=== PATIENT | male | born 1960 | race Caucasian/White ===

== ENCOUNTER 2019-06-23 05:56 | Inpatient (IN) | payer OTHER ==
[2019-06-16 08:44] VITALS: BMI 33.3
[~2019-06-23 05:56] MED LIST: TRANEXAMIC ACID 1000 MG/10 ML VIAL IVPUSH ONE
[2019-06-23] MEDS ORDERED: oxyCODONE HCL 10 MG SUSTAINED ACTING TABLET ONE (06:32)
[2019-06-23] MEDS ORDERED: PANTOPRAZOLE 40 MG TABLET (FP) ONE (06:32)
[2019-06-23] MEDS ORDERED: CELECOXIB 200 MG CAPSULE ONE (06:33)
[2019-06-23] MEDS: oxyCODONE HCL 10 MG SUSTAINED ACTING TABLET PO ONE (07:00)
[2019-06-23] MEDS: PANTOPRAZOLE 40 MG TABLET (FP) PO ONE (07:00)
[2019-06-23] MEDS: CELECOXIB 200 MG CAPSULE PO ONE (07:00)
[2019-06-23] MEDS ORDERED: MIDAZOLAM HCL 2 MG/2 ML SINGLE DOSE VIAL ONE ×2 (07:14→08:09)
[2019-06-23] MEDS ORDERED: BUPIVACAINE LIPOSOME/PF (EXPAREL) 266 MG/20 ML VIAL ONE (07:15)
[2019-06-23] MEDS ORDERED: SODIUM CHLORIDE 0.9% P/F 10 ML VIAL IJ ONE (07:15)
[2019-06-23] MEDS ORDERED: TRANEXAMIC ACID 1000 MG/10 ML VIAL ONE ×3 (07:19→07:46)
[2019-06-23] MEDS ORDERED: ceFAZolin SODIUM 1 GM VIAL ONE ×6 (07:19→15:28)
[2019-06-23] MEDS ORDERED: VANCOMYCIN 1,000 MG VIAL (RESTRICTED TO ID ONLY) ONE ×3 (07:19→07:46)
[2019-06-23] MEDS ORDERED: SUCCINYLCHOLINE CHLORIDE 200 MG/10 ML SYRINGE ONE (07:45)
[2019-06-23] MEDS ORDERED: BUPIVACAINE HCL/PF 0.5% (5MG/ML) 10 ML VIAL ONE (07:51)
[2019-06-23] MEDS ORDERED: BUPIVACAINE HCL/PF 2.5 MG/ML - 30 ML VIAL IJ ONE (07:51)
[2019-06-23] MEDS ORDERED: VANCOMYCIN 1,500 MG in DEXTROSE 5%-WATER - 500 ML IVPB ONE (08:00)
[2019-06-23] MEDS ORDERED: CEFAZOLIN 2 GM in DEXTROSE 5%-WATER - 50 ML IVPB ONE (08:00)
--- NOTE | 2019-06-23 08:02 | HP ---
Admitting History and Physical - Admission Chief Complaint: bilateral knee osteoarthritis x years History of Present Illness: 59 year old male presents in regard to both of his knees. Longstanding history of bilateral knee osteoarthritis. Patient complains of pain, limited ROM, difficulty ambulating and difficulty completing activities of daily living. Patient has failed conservative treatment measures including PO medications, injections, activity modifications and exercise programs. At this point, patient wishes to proceed with surgical intervention - bilateral total knee arthroplasty, MAKOplasty. History Source: Patient - Past Medical History Cardiovascular: Yes: HTN - Past Surgical History Additional Past Surgical History: See written history & physical. - Smoking History Smoking history: Never smoked - Alcohol/Substance Use Hx Alcohol Use: No Home Medications - Allergies Allergies/Adverse Reactions: Allergies Allergy/AdvReac Type Severity Reaction Status Date / Time No Known Allergies Allergy Verified 06/16/19 08:32 - Home Medications Home Medications: Ambulatory Orders Losartan/Hydrochlorothiazide [Losartan-Hctz 50-12.5 mg Tab] 1 each PO DAILY Potassium Chloride [K-Dur -] 10 meq PO DAILY 06/16/19 Review of Systems - Review of Systems Musculoskeletal: reports: Crepitus (bilateral knees), Decreased ROM (bilateral knees), Joint Pain (bilateral knees), Joint Swelling (bilateral knees) Physical Examination Vital Signs: Vital Signs Temperature 98.4 F 06/23/19 07:00 Pulse Rate 64 06/23/19 07:00 Respiratory Rate 18 06/23/19 07:00 Blood Pressure 144/91 06/23/19 07:00 O2 Sat by Pulse Oximetry (%) Constitutional: Yes: Well Nourished, No Distress Eyes: Yes: Conjunctiva Clear HENT: Yes: Atraumatic Neck: Yes: Supple Cardiovascular: Yes: Regular Rate and Rhythm Respiratory: Yes: Regular Gastrointestinal: Yes: Soft ...Rectal Exam: Yes: Deferred Musculoskeletal: Yes: Joint Stiffness (bilateral knees), Joint Swelling ( bilateral knees) Assessment/Plan 59 year old male presents in regard to both of his knees. Longstanding history of bilateral knee osteoarthritis. Patient complains of pain, limited ROM, difficulty ambulating and difficulty completing activities of daily living. Patient has failed conservative treatment measures including PO medications, injections, activity modifications and exercise programs. At this point, patient wishes to proceed with surgical intervention - bilateral total knee arthroplasty, MAKOplasty. Pros, cons, risks, benefits and alternatives of bilateral total knee arthroplasty, MAKOplasty was discussed with the patient at length. Patient confirms his understanding and consents to proceed with bilateral total knee arthroplasty, MAKOplasty.
[2019-06-23] MEDS ORDERED: ONDANSETRON 4 MG/2 ML VIAL ONE (08:50)
[2019-06-23] MEDS ORDERED: DEXAMETHASONE SOD PHOSPHATE 4 MG/1 ML VIAL ONE (08:50)
[2019-06-23] MEDS ORDERED: oxyCODONE HCL 5 MG TABLET PO PRN (11:03)
[2019-06-23] MEDS ORDERED: ONDANSETRON 4 MG/2 ML VIAL IVPUSH PRN ×2 (11:03→17:17)
[2019-06-23] MEDS ORDERED: PROMETHAZINE HCL 25 MG/1 ML VIAL IVPUSH PRN (11:03)
[2019-06-23] MEDS ORDERED: EPHEDRINE SULFATE/0.9% NACL/PF 50 MG/10 ML SYRINGE NR ONE (12:55)
--- NOTE | 2019-06-23 16:27 | SURG ---
Surgery Spring Former Machine Note Spring Former Machine: Ruthie Moncada PA-C Date of Service: 06/23/19 Diagnosis: left knee osteoarthitis Procedure: Left total knee MAKOplasty I was present for the entirety of the operative procedure. For further detail, please refer to operative report. Visit type - Case Type Case Type: Scheduled - Emergency Emergency Visit: No - New patient This patient is new to me today: Yes Date on this admission: 06/23/19
--- NOTE | 2019-06-23 16:30 | OP ---
Operative Note - Note: Operative Date: 06/23/19 Pre-Operative Diagnosis: left knee osteoarthritis Operation: left total knee MAKOplasty Post-Operative Diagnosis: Same as Pre-op Surgeon: David Ji Reversal Print Inspector: Ruthie Moncada Anesthesiologist/CADD OPERATOR: Carlo Cerda Anesthesia: Spinal, Local (block) Specimens Removed: distal femur. proximal femur Estimated Blood Loss (mls): 250 Fluid Volume Replaced (mls): 700 Operative Report Dictated: Yes
[2019-06-23] MEDS ORDERED: KETOROLAC TROMETHAMINE 30 MG/1 ML VIAL ONE (16:39)
[2019-06-23] MEDS ORDERED: traMADol HCL 50 MG TABLET ONE (16:39)
[2019-06-23] MEDS ORDERED: ACETAMINOPHEN INJECTION 100 ML IVPB ONE (16:39)
[2019-06-23] MEDS: traMADol HCL 50 MG TABLET PO SCH ×2 (17:15→23:34)
[2019-06-23] MEDS ORDERED: ACETAMINOPHEN 1000 MG/100 ML VIAL (NON FORMULARY) IVPB ONE (17:15)
--- NOTE | 2019-06-23 17:15 | OP ---
Operative Note - Note: Operative Date: 06/23/19 Pre-Operative Diagnosis: Right knee OA Operation: Right CELESTINE TKA Post-Operative Diagnosis: Same as Pre-op Surgeon: Daivd Ji Community Manager: Jennifer Grimaldo Estimated Blood Loss (mls): 200
[2019-06-23] MEDS ORDERED: MAG HYDROX/AL HYDROX/SIMETH 30 ML UNIT-DOSE CUP PO PRN (17:17)
[2019-06-23] MEDS ORDERED: MAGNESIUM HYDROX 2400MG/30ML ORAL SUSPENSION 30 ML CUP PO PRN (17:17)
[2019-06-23] MEDS ORDERED: LACTATED RINGERS SOLUTION 1,000 ML IV SCH (17:30)
[2019-06-23] MEDS: ACETAMINOPHEN 325 MG TABLET (FP) PO SCH ×2 (17:46→23:35)
[2019-06-23] MEDS: KETOROLAC TROMETHAMINE 30 MG/1 ML VIAL IVPUSH SCH ×2 (17:46→23:35)
[2019-06-23] MEDS: CEFAZOLIN 1 GM/D5W 1 GM/50 ML BAG IVPB SCH (18:28)
[2019-06-23] MEDS: oxyCODONE HCL 5 MG TABLET PO PRN (18:28)
[2019-06-23] MEDS ORDERED: REFRIGERATED ANITBIOTICS ONE (20:23)
--- NOTE | 2019-06-23 20:53 | SPEC ---
DATE OF OPERATION: 06/23/2019 PREOPERATIVE DIAGNOSIS: Bilateral knee osteoarthritis. POSTOPERATIVE DIAGNOSIS: Bilateral knee osteoarthritis. PROCEDURE: Right total knee replacement. ATTENDING SURGEON: Johnie Trejo MD PANEL EDGE PAINTER: PRAKASH Hernandes ANESTHESIA: Spinal plus sedation. ESTIMATED BLOOD LOSS: 200 mL. COMPLICATIONS: None. DISPOSITION: The patient was transferred to the PACU in stable condition. IMPLANTS USED: [place] Triathlon size 6 femoral component, Michelle Triathlon size 5 tibial component, 9-mm posterior stabilized polyethylene component, 35-mm patellar component. INDICATIONS: This is a 59-year-old male who presented to the office complaining of severe bilateral knee pain. He was seen and examined in the office and diagnosed with severe bilateral knee osteoarthritis. The patient was initially treated conservatively with injections, medications, and physical therapy but continued to have severe pain and ambulatory dysfunction. He was, therefore, indicated for a total knee replacement. We discussed that both knees were equally arthritic and equally painful, and the patient wished to proceed with bilateral, simultaneous total knee replacement. The risks, benefits, and alternatives to the procedure were discussed with the patient in great detail, and he elected to proceed with surgery. The surgery was performed as 2 separate procedures. DESCRIPTION OF PROCEDURE: On the day of surgery, the patient was taken to the operating room and placed on the OR table. Spinal anesthesia was administered by the anesthesiologist. The patient was then positioned supine on the table and all bony prominences were padded. The knee was then prepped and draped in the usual sterile fashion and intravenous antibiotics were given for infection prophylaxis. A surgical time-out was then performed with the team, and the patients identity, procedure, side, availability of implants, and the administration of antibiotics was confirmed. With the knee flexed, a midline incision was made and carried down through the subcutaneous fat to the underlying retinaculum. A medial parapatellar arthrotomy was performed. This was followed by a subperiosteal dissection of the tissue off the proximal, medial tibia. A portion of fat pad was removed from under the patellar tendon, and a small portion of fat was excised off the distal supracondylar femur. Electrocautery and an [employer] bipolar sealing device were used to achieve hemostasis. The knee was then flexed further and the anterior horn of the lateral meniscus was released from the midline. Next, the anterior and posterior cruciate ligaments were transected. Grade 4 changes were noted diffusely throughout the knee. Femoral and tibial checkpoints were then placed in the appropriate location using a mallet. Two parallel bicortical self-drilling pins were placed in the tibial diaphysis after making stab incisions and bluntly dissecting down to bone. Two pins were then placed in the distal supracondylar femur. The [employer] navigation arrays were then attached to both the femoral and tibial pins and the lower extremity was then registered to the robotic navigation device using various joint movements, as well as inputting several dozen reference points. The knee was then taken through a full range of motion with a corrective force applied. Alignment in varus/valgus as well as flexion/extension and soft tissue balance was measured in various positions. The navigation device showed a numerical and graphic representation of the soft tissue balance. The components were repositioned virtually using the software until optimal soft tissue balance was achieved on screen. Once this was accomplished, the final plan was saved and sent to the robot. Self-retaining retractors were then placed at the joint line for exposure and protection of the collateral ligaments. The robot was brought into the sterile field and registered with the navigation device. The robotic arm with attached oscillating saw blade was then used to perform femoral and tibial bone cuts as per the saved software plan. The femoral box cut was made using the appropriately sized manual cutting guide. The knee was then irrigated. Trial components were placed and the knee was taken through a full range of motion to assess soft tissue balance and alignment. The range of motion was found to be excellent and the soft tissue balance was optimal and according to plan. The knee was then put into extension and the patella everted. The synovium around the patella was circumscribed with electrocautery. A caliper was used to measure the patellar thickness and a saw was then used to resect the patella at the chondro-osseous junction. The cut surface was then sized and drilled for the appropriate patellar button, with care taken to medialize it. A trial patella was then placed and the knee was again taken through a full range of motion. The knee was found to have both good balance and good patellar tracking. All of the components were removed except the tibial base plate. The appropriate instrumentation was used to drill and punch the proximal tibia for the keel of the final component. All bony surfaces were then cleaned with pulsatile lavage and dried. Bone cement was then prepared on the back table, and final components were cemented in place in the usual fashion. Extruded cement was removed. The polyethylene trial was placed, the knee was put into extension, and axial pressure was applied for compression while the cement hardened. The patellar button was similarly cemented into place. Once the cement had hardened, the knee was taken through a full range of motion to assess stability, balance, and patellar tracking. This was found to be optimal and the trial polyethylene was exchanged for the appropriately sized real implant. The wound was then thoroughly irrigated with normal saline. A 3-minute dilute Betadine lavage was performed. The knee was again irrigated using a pulsatile lavage device. A periarticular injection was used to locally infiltrate the capsular tissues surrounding the implant and prosthesis. Then No. 1 Polysorb and 0 VLoc 180 barbed sutures were used to close the arthrotomy. Then No. 1 Polysorb and 2-0 VLoc 90 sutures were used in the subcutaneous tissues. Then 4-0 undyed Vicryl and Dermabond skin adhesive was used to close the stab incisions made for the navigation pins. The skin was closed using both 3-0 VLoc 90 suture in a running subcuticular fashion and Dermabond skin adhesive. Once this was completed a sterile Aquacel dressing and compressive Donis-wrap was applied. After dressings were placed, the patient was awakened, and x-rays were taken. We then set up an entirely new room for the left total knee replacement with entirely new instruments and preparation as if it were a completely separate case. JOHNIE TREJO M.D. [id number]
--- NOTE | 2019-06-23 20:54 | SPEC ---
DATE OF OPERATION: 06/23/2019 PREOPERATIVE DIAGNOSIS: Bilateral knee osteoarthritis. POSTOPERATIVE DIAGNOSIS: Bilateral knee osteoarthritis. PROCEDURE: Left total knee replacement. ATTENDING: David Ji MD MEDICAL DETAIL REPRESENTATIVE: PRAKASH Gallagher ANESTHESIA: Spinal plus sedation. ESTIMATED BLOOD LOSS: 200 mL. COMPLICATIONS: None. DISPOSITION: The patient was transferred to the PACU in stable condition. IMPLANTS USED: [place] Triathlon size 5 femoral component, Michelle Triathlon size 5 tibial component, 13-mm posterior-stabilized polyethylene component, a 32-mm patellar component. INDICATIONS: This is a 59-year-old male who presented to the office with bilateral knee osteoarthritis. He was initially treated conservatively, then due to continued pain and ambulatory dysfunction, indicated for total knee replacement. Because he had equally painful and arthritic knees bilaterally, we elected to perform bilateral total knee replacement at the patient's request. The right knee replacement was performed first as a separate case, and there is a separate operative report for that surgery. Following the right knee replacement, we proceeded with a left knee replacement. The risks, benefits, and alternatives of the procedure had been explained to the patient prior to the initial surgery, and informed consent was obtained for the bilateral procedure. The patient, after having completed his right total knee replacement, was awakened, and x-rays were performed. An entirely new surgical room was set up with new instruments, and the left total knee replacement was performed as an entirely separate case from the right. On the day of surgery, the patient was taken to the operating room and placed on the OR table. Spinal anesthesia was administered by the anesthesiologist. The patient was then positioned supine on the table and all bony prominences were padded. The knee was then prepped and draped in the usual sterile fashion and intravenous antibiotics were given for infection prophylaxis. A surgical time-out was then performed with the team, and the patients identity, procedure, side, availability of implants, and the administration of antibiotics was confirmed. With the knee flexed, a midline incision was made and carried down through the subcutaneous fat to the underlying retinaculum. A medial parapatellar arthrotomy was performed. This was followed by a subperiosteal dissection of the tissue off the proximal, medial tibia. A portion of fat pad was removed from under the patellar tendon, and a small portion of fat was excised off the distal supracondylar femur. Electrocautery and an [employer] bipolar sealing device were used to achieve hemostasis. The knee was then flexed further and the anterior horn of the lateral meniscus was released from the midline. Next, the anterior and posterior cruciate ligaments were transected. Grade 4 changes were noted diffusely throughout the knee. Femoral and tibial checkpoints were then placed in the appropriate location using a mallet. Two parallel bicortical self-drilling pins were placed in the tibial diaphysis after making stab incisions and bluntly dissecting down to bone. Two pins were then placed in the distal supracondylar femur. The [employer] navigation arrays were then attached to both the femoral and tibial pins and the lower extremity was then registered to the robotic navigation device using various joint movements, as well as inputting several dozen reference points. The knee was then taken through a full range of motion with a corrective force applied. Alignment in varus/valgus as well as flexion/extension and soft tissue balance was measured in various positions. The navigation device showed a numerical and graphic representation of the soft tissue balance. The components were repositioned virtually using the software until optimal soft tissue balance was achieved on screen. Once this was accomplished, the final plan was saved and sent to the robot. Self-retaining retractors were then placed at the joint line for exposure and protection of the collateral ligaments. The robot was brought into the sterile field and registered with the navigation device. The robotic arm with attached oscillating saw blade was then used to perform femoral and tibial bone cuts as per the saved software plan. The femoral box cut was made using the appropriately sized manual cutting guide. The knee was then irrigated. Trial components were placed and the knee was taken through a full range of motion to assess soft tissue balance and alignment. The range of motion was found to be excellent and the soft tissue balance was optimal and according to plan. The knee was then put into extension and the patella everted. The synovium around the patella was circumscribed with electrocautery. A caliper was used to measure the patellar thickness and a saw was then used to resect the patella at the chondro-osseous junction. The cut surface was then sized and drilled for the appropriate patellar button, with care taken to medialize it. A trial patella was then placed and the knee was again taken through a full range of motion. The knee was found to have both good balance and good patellar tracking. All of the components were removed except the tibial base plate. The appropriate instrumentation was used to drill and punch the proximal tibia for the keel of the final component. All bony surfaces were then cleaned with pulsatile lavage and dried. Bone cement was then prepared on the back table, and final components were cemented in place in the usual fashion. Extruded cement was removed. The polyethylene trial was placed, the knee was put into extension, and axial pressure was applied for compression while the cement hardened. The patellar button was similarly cemented into place. Once the cement had hardened, the knee was taken through a full range of motion to assess stability, balance, and patellar tracking. This was found to be optimal and the trial polyethylene was exchanged for the appropriately sized real implant. The wound was then thoroughly irrigated with normal saline. A 3-minute dilute Betadine lavage was performed. The knee was again irrigated using a pulsatile lavage device. A periarticular injection was used to locally infiltrate the capsular tissues surrounding the implant and prosthesis. Then No. 1 Polysorb and 0 VLoc 180 barbed sutures were used to close the arthrotomy. Then No. 1 Polysorb and 2-0 VLoc 90 sutures were used in the subcutaneous tissues. Then 4-0 undyed Vicryl and Dermabond skin adhesive was used to close the stab incisions made for the navigation pins. The skin was closed using both 3-0 VLoc 90 suture in a running subcuticular fashion and Dermabond skin adhesive. Once this was completed a sterile Aquacel dressing and compressive Donis-wrap was applied. The patient was then awakened and taken to the PACU in stable condition. Leo [id number]
[2019-06-23] MEDS ORDERED: VANCOMYCIN 1,750 MG in DEXTROSE 5%-WATER - 500 ML IVPB ONE (21:00)
[2019-06-23] MEDS: SENNOSIDES/DOCUSATE COMBO (SENNA PLUS) TABLET (UD) PO SCH (21:37)
[2019-06-23] MEDS: GABAPENTIN 300 MG CAPSULE (FP) PO SCH (21:37)
[2019-06-23] MEDS: ASCORBIC ACID 500 MG TABLET (FP) PO SCH (21:37)
[2019-06-23] MEDS: oxyCODONE HCL 10 MG SUSTAINED ACTING TABLET PO SCH (21:37)
[2019-06-23] MEDS: CELECOXIB 200 MG CAPSULE PO SCH (22:27)
[2019-06-24] MEDS ORDERED: DEXAMETHASONE SOD PHOSPHATE 10 MG/1 ML VIAL IVPB ONE
[2019-06-24] MEDS: CEFAZOLIN 1 GM/D5W 1 GM/50 ML BAG IVPB SCH ×3 (01:15→12:30)
[2019-06-24] MEDS: KETOROLAC TROMETHAMINE 30 MG/1 ML VIAL IVPUSH SCH (05:47)
[2019-06-24] MEDS: ACETAMINOPHEN 325 MG TABLET (FP) PO SCH ×4 (05:47→23:02)
[2019-06-24] MEDS: traMADol HCL 50 MG TABLET PO SCH ×4 (05:48→23:02)
[2019-06-24 07:52] LABS: CALCIUM 8.6 mg/dl (8.5-10); CREATININE 1.5 mg/dl (0.55-1.3); POTASSIUM 4.3 mmol/L (3.5-5.1)
[2019-06-24 08:14] LABS: MCH 33.4 pg (25.7-33.7); MCHC 35.3 g/dl (32.0-35.9); MEAN CELL VOLUME 94.8 fl (80-96); MEAN PLT VOLUME 8.3 fl (7.5-11.1); PLATELET COUNT 242 K/MM3 (134-434); RBC 3.58 M/mm3 (4.00-5.60); RDW 12.6 % (11.9-15.9); WHITE BLOOD COUNT 11.1 K/mm3 (4.0-10.8)
[2019-06-24] MEDS: oxyCODONE HCL 10 MG SUSTAINED ACTING TABLET PO SCH ×2 (09:53→21:34)
[2019-06-24] MEDS: LOSARTAN 50MG/HCTZ 12.5MG 1 TAB (FP) PO SCH (09:55)
[2019-06-24] MEDS: MULTIVITAMINS (DAILY MVI) TABLET (FP) PO SCH (09:56)
[2019-06-24] MEDS: PANTOPRAZOLE 40 MG TABLET (FP) PO ONE (09:56)
[2019-06-24] MEDS: POTASSIUM CHLORIDE TABS 10 MEQ TABLET.ER (FP) PO SCH (09:56)
[2019-06-24] MEDS: ASCORBIC ACID 500 MG TABLET (FP) PO SCH ×2 (09:56→21:34)
[2019-06-24] MEDS: APIXABAN 2.5 MG TABLET PO SCH ×2 (09:56→21:34)
[2019-06-24] MEDS: SENNOSIDES/DOCUSATE COMBO (SENNA PLUS) TABLET (UD) PO SCH ×2 (09:57→21:34)
[2019-06-24] MEDS: GABAPENTIN 300 MG CAPSULE (FP) PO SCH ×2 (09:57→21:34)
[2019-06-24] MEDS: PANTOPRAZOLE 40 MG TABLET (FP) PO SCH (09:57)
[2019-06-24] MEDS: CELECOXIB 200 MG CAPSULE PO SCH (10:10)
--- NOTE | 2019-06-24 11:24 | PN ---
Progress Note (short form) - Note Progress Note: 59M POD1 s/p b/l total knee replacement surgery under spinal anesthetic with peripheral nerve blocks for post operative pain relief. Pt is doing well, states that pain is well controlled. Pt has intact motor function in bilateral lower extremities. Continue current regimen.
[2019-06-24] MEDS: oxyCODONE HCL 5 MG TABLET PO PRN ×2 (14:48→18:22)
--- NOTE | 2019-06-24 21:55 | PN ---
Progress Note (short form) - Note Progress Note: Pt seen and examined. Doing well. AVSS Selected Entries 06/24/19 06/24/19 17:00 18:39 Temperature 97.9 F Pulse Rate 75 Respiratory 19 Rate Blood Pressure 131/77 O2 Sat by Pulse 98 Oximetry (%) Oxygen Delivery Room Air Method Laboratory Tests 06/24/19 06/24/19 07:00 07:00 WBC 11.1 H Hgb 12.0 Hct 34.0 L Plt Count 242 Sodium 135 L Potassium 4.3 Chloride 103 Carbon Dioxide 25 Anion Gap 7 L BUN 29.0 H Creatinine 1.5 H Random Glucose 165 H Calcium 8.6 Gen: NAD B/L LE: c/d/i, NVID A/P POD#1 s/p bilateral CELESTINE TKA D/C NSAIDs Eliquis for DVT ppx PT/OOB Plan for d/c to [facility] tomorrow
--- NOTE | 2019-06-24 22:01 | DS ---
Physical Examination Vital Signs: Vital Signs Temperature 97.9 F 06/24/19 17:00 Pulse Rate 75 06/24/19 17:00 Respiratory Rate 19 06/24/19 17:00 Blood Pressure 131/77 06/24/19 17:00 O2 Sat by Pulse Oximetry (%) 98 06/24/19 18:39 Labs: CBC, BMP 06/24/19 07:00 06/24/19 07:00 Discharge Summary Reason For Visit: BILATERAL PRIMARY OSTEOARTHRITIS OF KNEE Current Active Problems Bilateral primary osteoarthritis of knee (Acute) Procedures: Principal: bilateral CELESTINE TKA Hospital Course: Admitted for elective surgery. Procedure performed without complications. Pt received postoperative antibiotic prophylaxis and DVT ppx. Ambulated with physical therapy. Stable for discharge home with outpatient followup. Condition: Stable - Instructions Diet, Activity, Other Instructions: Dr. Ji - Knee Replacement Instructions Keep the Aquacel dressings on until removed by Dr. Ji in 10-14 days - they are antibacterial and waterproof and you can shower with them on. Call the office for a follow-up appointment with Dr. Ji in 10-14 days. [phone] Take ELIQUIS 2.5mg twice daily for 35 days to prevent blood clots in your legs. Take one Pantoprazole 40mg daily for 6 weeks to protect against heartburn and ulcers. Take Cephalexin (antibiotic) 3x/day for 14 days to help prevent skin infection. Take a multivitamin, stool softener, and extra Vitamin C supplement daily. For pain: *Mild pain (1-3/10): Take 1 Tramadol tablet every 4 hours as needed. Moderate pain (4-6/10): Take 1 Tramadol tablet and 1 Percocet tablet every 4 hours as needed. Severe pain (7-10/10): Take 1 Tramadol tablet and 2 Percocet tablets every 4 hours as needed. Activity: Always use a walker or cane for balance and to prevent falls. Expect to see swelling/bruising from the operative sites all the way down to your toes. Wear the compression stockings during the day to minimize how much swelling there is in your feet/ankles. Don't wear the stockings at night. Disposition: VNS/HOME HEALTH CARE - Home Medications Comprehensive Discharge Medication List: Ambulatory Orders Losartan/Hydrochlorothiazide [Losartan-Hctz 50-12.5 mg Tab] 1 each PO DAILY Potassium Chloride [K-Dur -] 10 meq PO DAILY 06/16/19 Apixaban [Eliquis -] 2.5 mg PO BID tablet 06/24/19 Ascorbic Acid [Vitamin C -] 500 mg PO BID tablet 06/24/19 Cephalexin Monohydrate [Keflex -] 500 mg PO TID #42 capsule 06/24/19 Multivitamins [Multivit ([facility] Formulary)] 1 tab PO DAILY tab 06/24/19 Oxycodone HCl/Acetaminophen [Percocet 5-325 mg Tablet] 1 - 2 tab PO Q4H PRN #60 tablet MDD 10 06/24/19 Pantoprazole Sodium [Protonix -] 40 mg PO DAILY tablet.ec 06/24/19 Sennosides/Docusate Sodium [Pericolace -] 2 tablet PO BID tablet 06/24/19 traMADol HCL [Ultram -] 50 mg PO Q4H PRN #42 tablet MDD 6 06/24/19
[2019-06-25] MEDS: ACETAMINOPHEN 325 MG TABLET (FP) PO SCH ×3 (05:36→11:36)
[2019-06-25] MEDS: traMADol HCL 50 MG TABLET PO SCH ×2 (05:36→11:35)
[2019-06-25] MEDS: oxyCODONE HCL 10 MG SUSTAINED ACTING TABLET PO ONE (07:51)
[2019-06-25] MEDS: CELECOXIB 200 MG CAPSULE PO ONE (07:51)
[2019-06-25] MEDS: KETOROLAC TROMETHAMINE 30 MG/1 ML VIAL IVPUSH SCH (07:53)
[2019-06-25 08:06] LABS: HEMATOCRIT 30.3 % (35.4-49); HEMOGLOBIN 10.4 GM/dl (11.7-16.9); MCH 32.8 pg (25.7-33.7); MCHC 34.4 g/dl (32.0-35.9); MEAN CELL VOLUME 95.4 fl (80-96); MEAN PLT VOLUME 8.6 fl (7.5-11.1); PLATELET COUNT 224 K/MM3 (134-434); RBC 3.18 M/mm3 (4.00-5.60); RDW 12.4 % (11.9-15.9)
[2019-06-25 08:10] LABS: CALCIUM 8.6 mg/dl (8.5-10); CREATININE 1.8 mg/dl (0.55-1.3); POTASSIUM 3.9 mmol/L (3.5-5.1)
[2019-06-25] MEDS: oxyCODONE HCL 10 MG SUSTAINED ACTING TABLET PO SCH (09:15)
[2019-06-25] MEDS: oxyCODONE HCL 5 MG TABLET PO PRN (09:21)
[2019-06-25] MEDS: POTASSIUM CHLORIDE TABS 10 MEQ TABLET.ER (FP) PO SCH (09:56)
[2019-06-25] MEDS: GABAPENTIN 300 MG CAPSULE (FP) PO SCH (09:56)
[2019-06-25] MEDS: LOSARTAN 50MG/HCTZ 12.5MG 1 TAB (FP) PO SCH (09:56)
[2019-06-25] MEDS: PANTOPRAZOLE 40 MG TABLET (FP) PO SCH (09:56)
[2019-06-25] MEDS: APIXABAN 2.5 MG TABLET PO SCH (09:56)
[2019-06-25] MEDS: ASCORBIC ACID 500 MG TABLET (FP) PO SCH (09:56)
[2019-06-25] MEDS: SENNOSIDES/DOCUSATE COMBO (SENNA PLUS) TABLET (UD) PO SCH (09:57)
[2019-06-25] MEDS: MULTIVITAMINS (DAILY MVI) TABLET (FP) PO SCH (09:58)
[2019-06-25 13:00] VITALS: BP 119/71; PULSE 89; TEMP 98.1
--- NOTE | 2019-06-26 12:29 | PATH ---
Surgical Pathology Report Patient Name: IRASEMA ASHTON Med. Rec. #: [id number] /Age/Gender: 1960 (Age: 59) / M Account: [id number] Location: [facility] MED-SURG Taken: 06/23/2019 Received: 06/23/2019 Reported: 06/26/2019 Physicians: David Ji M.D. Specimen(s) Received A: BONES RIGHT KNEE B: BONES LEFT KNEE Clinical History Osteoarthritis bilateral knees Final Diagnosis A. BONES, RIGHT KNEE, TOTAL KNEE REPLACEMENT: DEGENERATIVE JOINT DISEASE. B. BONES, LEFT KNEE, TOTAL KNEE REPLACEMENT: DEGENERATIVE JOINT DISEASE. Electronically Signed Ruthie More M.D. Gross Description A. Received in formalin, labeled "bones right knee" is an 11.7 x 10 x 2.3 cm aggregate of multiple portions of bone and soft tissue. The tibial plateau measures 7.7 x 5.5 x 1.3 cm. The articular surfaces show areas of eburnation and appear granular. The underlying trabecular bone is yellow and hard. Nautical Instrument Mechanic sections are submitted in one cassette, following decalcification. B. Received in formalin, labeled "bones left knee" is a 12.5 x 9.5 x 2 cm, aggregate of multiple portions of bone and soft tissue. The tibial plateau measures 8.5 x 6.6 x 1.3 cm. The articular surfaces show areas of eburnation and appear granular. The underlying trabecular bone is yellow and hard. Nautical Instrument Mechanic sections are submitted in one cassette, following decalcification.
== END 2019-06-25 13:01 | disposition home health service (06) | DRG 462 ==
LOC: FM/S 05:56
PROVIDERS: ADMIT Student in an Organized Health Care Education/Training Program; ATTEND Student in an Organized Health Care Education/Training Program
PROC: 0SRC0J9 Replacement of Right Knee Joint with Synthetic Substitute, Cemented, Open Approach (ICD-10-PCS; 2019-06-23)
PROC: 8E0Y0CZ Robotic Assisted Procedure of Lower Extremity, Open Approach (ICD-10-PCS; 2019-06-23)
PROC: 0SRD0J9 Replacement of Left Knee Joint with Synthetic Substitute, Cemented, Open Approach (ICD-10-PCS; principal; 2019-06-23 09:13)
DX: M17.0 Bilateral primary osteoarthritis of knee (principal); I10 Essential (primary) hypertension; E11.9 Type 2 diabetes mellitus without complications
CPT/HCPCS: 36415; 73560-TC-LT-FY; 73560-TC-RT-FY; 80048; 85027; 88304-TC; 88311-TC; 94760; 97116-GP; 97163-GP; J0131; J1100